=== PATIENT | male | born 1950 | race Caucasian/White ===

== ENCOUNTER → 2018-06-13 | Outpatient (CLI) | payer OTHER ==
[~2018-06-13] MED LIST: LIPITOR 20 MG T20 M1 PO
--- NOTE | 2018-06-13 08:40 | EKG ---
[place] [address] [facility] [place] [address] ELECTROCARDIOGRAM REPORT Name: AMANDA GALLO Room #: REG MIKA Carr#: [id number] ������������������ Admission: 06/13/18 ������������������ Attend Phys: Shad Ivory MD Discharge: ������������������ Date of : 54 Report #: [id number] ����������������������������������������������������������������� [id number] THIS REPORT FOR: //name// [facility] Test Date: 2018-06-13 Test Time: 06:48:18 Pat Name: AMANDA GALLO Department: Room: Gender: Emergency Medical Tech: MAGO : 1950 Requested By: Shad Ivory Order Number: [id number] MD: Collin Pollack Measurements Intervals [place] Rate: 77 P: 76 VT: 163 QRS: -36 QRSD: 116 T: 60 QT: 395 QTc: 448 Interpretive Statements Sinus rhythm Ventricular premature complex Incomplete RBBB and LAFB No previous ECG available for comparison Electronically Signed On 06-13-2018 8:40:17 CIVIL TECHNICIAN by Collin Pollack [email or web address] ��������������������������������������������� <ELECTRONICALLY SIGNED> ���������������������������������������� By: Collin Pollack MD, [facility] ��������������������������������������������� 06/13/18 [id number] Collin Pollack MD, FACC /EPI
== END | disposition home or self-care (01) ==
LOC: LITH 06:32
DX: N20.0 Calculus of kidney (principal); E78.00 Pure hypercholesterolemia, unspecified; Z98.890 Other specified postprocedural states; Z79.899 Other long term (current) drug therapy